=== PATIENT | female | born 1995 | race Caucasian/White ===

== ENCOUNTER 2017-03-25 15:26 | Emergency (ER) | payer MEDICAID ==
[2017-03-25] MEDS: ACETAMINOPHEN 325 MG TAB PO (16:01)
== END 2017-03-25 17:26 | disposition home or self-care (01) ==
LOC: FTE 15:26
DX: L02.31 Cutaneous abscess of buttock (principal)
CPT/HCPCS: 10061; 99283-25

== ENCOUNTER 2017-03-28 11:42 | Emergency (ER) | payer MEDICAID | END 2017-03-28 14:38 | disposition home or self-care (01) | LOC: E/R 11:42 | DX: Z48.01 Encounter for change or removal of surgical wound dressing (principal) | CPT/HCPCS: 99281; Z7502 ==

== ENCOUNTER 2017-04-21 12:35 | Emergency (ER) | payer MEDICAID | END 2017-04-21 17:38 | disposition home or self-care (01) | LOC: FTE 12:35 | DX: O26.892 Other specified pregnancy related conditions, second trimester (principal); R10.2 Pelvic and perineal pain; Z3A.17 17 weeks gestation of pregnancy | CPT/HCPCS: 76805; 99284-25 ==

== ENCOUNTER 2018-08-31 19:08 | Emergency (ER) | payer MEDICAID ==
[2018-08-31] MEDS: traMADol 50 MG TAB PO (21:58)
[2018-08-31] MEDS: KETOROLAC 60 MG INJ IM (21:58)
[2018-08-31] MEDS: DEXAMETHASONE 10 MG/ML 1 ML INJ IM (21:58)
[2018-08-31] MEDS: CYCLOBENZAPRINE 10 MG TAB PO (21:59)
== END 2018-08-31 23:10 | disposition home or self-care (01) ==
LOC: FTE 19:08
DX: R07.81 Pleurodynia (principal); M62.838 Other muscle spasm
CPT/HCPCS: 81025; 96372; 99284-25